=== PATIENT | female | born 2000 | race Caucasian/White ===

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

== ENCOUNTER 2020-04-09 06:38 | Inpatient (IN) | payer OTHER ==
[~2020-04-09] VITALS: Ht 170.2 cm; Wt 3.6 kg
== END 2020-04-12 13:11 | disposition home or self-care (01) | DRG 788 ==
LOC: OB/GYN 06:38 → LDR 06:38 → OB/GYN 11:06
PROVIDERS: ADMIT Specialist; ATTEND Specialist
PROC: 10907ZC Drainage of Amniotic Fluid, Therapeutic from Products of Conception, Via Natural or Artificial Opening (ICD-10-PCS; 2020-04-09)
PROC: 3E033VJ Introduction of Other Hormone into Peripheral Vein, Percutaneous Approach (ICD-10-PCS; 2020-04-09)
PROC: 4A1HXFZ Monitoring of Products of Conception, Cardiac Rhythm, External Approach (ICD-10-PCS; 2020-04-09)
PROC: 10D00Z1 Extraction of Products of Conception, Low, Open Approach (ICD-10-PCS; principal; 2020-04-09 08:00)
DX: O36.8330 Maternal care for abnormalities of the fetal heart rate or rhythm, third trimester, not applicable or unspecified (principal); O48.0 Post-term pregnancy; O99.824 Streptococcus B carrier state complicating childbirth; Z37.0 Single live birth; Z3A.40 40 weeks gestation of pregnancy; Z20.822 Contact with and (suspected) exposure to COVID-19

== ENCOUNTER 2025-02-05 09:28 | Emergency (ER) | payer OTHER ==
[~2025-02-05] VITALS: Ht 170.2 cm; Wt 108.0 kg
[2025-02-05] MEDS ORDERED: PRENATABS RX T1 EACH (10:14)
[2025-02-05 12:53] LABS: BASO % 0.4 % (0.1-1.2); EOS # 0.25 (0.04-0.54); EOS % 3.3 % (0.7-7.0); LYMPH # 1.52 (1.18-3.74); LYMPH % 20.1 % (19.3-53.1); MEAN PLATELET VOLUME 10.50 fl (9.4-12.4); MONO # 0.65 (0.24-0.82); MONO % 8.6 % (4.7-12.5); NEUT # 5.08 (1.56-6.13); NEUT % 67.3 % (34.0-71.1); RED CELL DISTRIBUTION WIDTH 12.9 % (11.6-14.4)
[2025-02-05 12:58] LABS: URINE APPEARANCE Clear; URINE BILIRRUBIN Negative (NEGATIVE); URINE BLOOD Large; URINE COLOR Yellow; URINE GLUCOSE Negative (NEGATIVE); URINE KETONE Negative (NEGATIVE); URINE LEUKOCYTE Trace; URINE NITRATE Negative; URINE PROTEIN Negative (NEGATIVE); URINE UROBILINOGEN 0.2 E.U./dl
[2025-02-05 12:59] LABS: URINE BACTERIA 555.6 uL (0.0-1933); URINE EPITHELIAL CELLS 39.8 uL (0.0-38.8); URINE RBC 23.4 uL (0.0-20.8); URINE WBC 22.9 uL (0.0-23.2)
[2025-02-05 13:47] LABS: ALT/SGPT 49.0 U/L (12-78); AST/SGOT 25.0 U/L (15-37); BILIRUBIN TOTAL 0.52 mg/dL (0.3-1.2); BUN CREA RATIO 20.0 (7.0-25.0); CREATININE SERUM 0.69 mg/dL (0.55-1.02); GFR 104.52; GLOBULINA 3.6 G/DL (2.4-3.5); GLUCOSE FASTING 82.0 mg/dL (65-100); HCG QUANTITATIVE 809.0 mUI/mL (1-3); OSMOLALITY SERUM 281.0 MOSM/KG (275-295)
[2025-02-05 13:49] LABS: URINE CAST 0.00 uL (0.0-1.40)
[2025-02-05] MEDS ORDERED: DUI500 PO (16:50)
== END 2025-02-05 17:04 | disposition home or self-care (01) ==
LOC: ER 09:28
PROVIDERS: General Practice
DX: O99.411 Diseases of the circulatory system complicating pregnancy, first trimester (principal); R55 Syncope and collapse; Z3A.10 10 weeks gestation of pregnancy